=== PATIENT | female | born 1965 | race Asian ===

== ENCOUNTER → 2016-09-16 | Outpatient (CLI) | payer OTHER, BC ==
[~2016-09-16] MED LIST: FLAX100029 PO
== END | disposition home or self-care (01) ==
LOC: CFH 14:33
PROVIDERS: ATTEND Surgery
DX: D24.1 Benign neoplasm of right breast (principal); N63 Unspecified lump in breast
CPT/HCPCS: 76641; G0206

== ENCOUNTER → 2017-04-16 | Outpatient (CLI) | payer OTHER, BC | END | disposition home or self-care (01) | LOC: CFH 13:42 | PROVIDERS: ATTEND Surgery | DX: N63.10 Unspecified lump in the right breast, unspecified quadrant (principal); D48.61 Neoplasm of uncertain behavior of right breast; D24.1 Benign neoplasm of right breast | CPT/HCPCS: 77066 ==

== ENCOUNTER → 2017-05-28 | Outpatient (CLI) | payer OTHER, BC ==
[~2017-05-28] MED LIST changes: +NONE PER PT
== END ==
LOC: STAR 08:19
PROVIDERS: ATTEND Surgery
DX: Z02.9 Encounter for administrative examinations, unspecified (principal)

== ENCOUNTER 2017-06-07 09:54 | Day surgery (SDC) | payer OTHER, BC ==
[~2017-06-07] VITALS: Ht 160 cm; Wt 68.0 kg
[~2017-06-07 09:54] MED LIST changes: +BUPIVACAINE/PF 0.25% ONE
[2017-06-07] MEDS ORDERED: FENTANYL PF 100 MCG/2ML ONE (11:29)
[2017-06-07] MEDS ORDERED: MIDAZOLAM 1 MG/ML, 2ML ONE (11:29)
[2017-06-07 11:35] VITALS: BP 170/104
[2017-06-07] MEDS ORDERED: LACTATED RINGERS 1,000 ML IV SCH (11:35)
[2017-06-07 11:46] LABS: HCG UR SG 1.015 (1.003-1.030)
[2017-06-07] MEDS ORDERED: ONDANSETRON 2MG/ML, 2ML ONE (12:14)
[2017-06-07] MEDS ORDERED: CEFAZOLIN 1,000 MG ONE (12:14)
[2017-06-07] MEDS ORDERED: PROPOFOL 10 MG/ML, 20ML ONE (12:14)
[2017-06-07] MEDS ORDERED: DEXAMETHASONE 4 MG/ML, 1ML ONE (12:14)
[2017-06-07] MEDS ORDERED: LABETALOL 5MG/ML, 20ML IV PRN (12:30)
[2017-06-07] MEDS ORDERED: HYDROcodone/APAP 7.5-325MG/15ML UDC PO PRN (12:30)
[2017-06-07] MEDS ORDERED: ACETAMINOPHEN 325 MG TABLET PO PRN (12:30)
[2017-06-07] MEDS ORDERED: morphine SULFATE 10 MG/ML, 1ML IV PRN (12:30)
[2017-06-07] MEDS ORDERED: FENTANYL PF 100 MCG/2ML IV PRN (12:30)
[2017-06-07] MEDS ORDERED: OXYcodone 5 MG/5 ML ORAL.SOL UDC PO PRN (12:30)
[2017-06-07] MEDS ORDERED: ONDANSETRON 2MG/ML, 2ML IVPush PRN (12:30)
[2017-06-07] MEDS ORDERED: PROMETHAZINE 25 MG/ML, 1ML IV PRN (12:30)
[2017-06-07] MEDS ORDERED: hydrALAzine 20 MG/ML, 1ML IV PRN (12:30)
[2017-06-07] MEDS ORDERED: OXYcodone 5 MG/5 ML ORAL.SOL UDC ONE (12:50)
[2017-06-07] MEDS ORDERED: ACETAMINOPHEN 325 MG TABLET ONE (12:50)
[2017-06-07] MEDS ORDERED: ACETAMINOPHEN 650 MG/20.3 ML UDC ONE (12:51)
[2017-06-07] MEDS ORDERED: hydrALAzine 20 MG/ML, 1ML ONE (13:15)
== END 2017-06-07 15:35 | disposition home or self-care (01) ==
LOC: OUT 09:54
PROVIDERS: ATTEND Surgery
DX: N63.10 Unspecified lump in the right breast, unspecified quadrant (principal)
CPT/HCPCS: 19120; 81025; 88307; J0360; J0690; J1100; J2250; J2405; J2704; J3010; J3490; J7120

== ENCOUNTER 2017-12-13 10:26 | Emergency (ER) | payer OTHER, BC ==
[~2017-12-13] VITALS: Ht 160 cm; Wt 70.0 kg
[~2017-12-13 10:26] MED LIST changes: -BUPIVACAINE/PF 0.25% ONE
[2017-12-13 10:39] VITALS: BP 184/80
[2017-12-13] MEDS ORDERED: LOSA25TA6 PO (10:48)
[2017-12-13 11:54] LABS: MICROSCOPIC AUTO
[2017-12-13 11:57] LABS: CULTURE INDICATED? NO
[2017-12-13 12:16] LABS: BASOPHILS # (AUTO) 0.03 x10^3/uL (0-0.1); BASOPHILS % (AUTO) 0 % (0-1); EOSINOPHILS # (AUTO) 0.07 x10^3/uL (0-0.4); EOSINOPHILS % (AUTO) 1 % (1-7); LYMPHOCYTES # (AUTO) 1.58 x10^3/uL (1-3.4); LYMPHOCYTES % (AUTO) 21 % (22-44); MD NO; MEAN CORPUSCULAR HEMOGLOBIN 30.6 pg (27.0-34.8); MEAN CORPUSCULAR HGB CONC 33.7 g/dL (32.4-35.8); MEAN PLATELET VOLUME 8.6 fL (7.4-10.4); MONOCYTES # (AUTO) 0.57 x10^3/uL (0.2-0.8); MONOCYTES % (AUTO) 7 % (2-9); NEUTROPHILS # (AUTO) 5.47 x10^3/uL (1.8-6.8); NEUTROPHILS % (AUTO) 71 % (42-75); PLATELET COUNT 292 x10^3/uL (130-400); RED BLOOD COUNT 2.74 x10^6/uL (3.82-5.3); RED CELL DISTRIBUTION WIDTH 15.3 % (9.6-15.2)
[2017-12-13 12:24] LABS: ALBUMIN 3.4 g/dL (3.4-5.0); ANION GAP 6 mmol/L (5-15); CHLORIDE 110 mmol/L (98-107); CREATININE 0.65 mg/dL (0.55-1.02)
== END 2017-12-13 14:28 | disposition home or self-care (01) ==
LOC: ED 12:08
DX: N93.8 Other specified abnormal uterine and vaginal bleeding (principal); N92.4 Excessive bleeding in the premenopausal period; I10 Essential (primary) hypertension
CPT/HCPCS: 36415; 76830; 80048; 81001; 82040; 84703; 85025; 99285

== ENCOUNTER 2018-02-04 12:41 | Day surgery (SDC) | payer OTHER, BC ==
[2018-02-02 10:04] LABS: BASOPHILS # (AUTO) 0.03 x10^3/uL (0-0.1); BASOPHILS % (AUTO) 1 % (0-1); EOSINOPHILS % (AUTO) 2 % (1-7); LYMPHOCYTES # (AUTO) 1.58 x10^3/uL (1-3.4); LYMPHOCYTES % (AUTO) 31 % (22-44); MD NO; MEAN CORPUSCULAR HEMOGLOBIN 30.8 pg (27.0-34.8); MEAN CORPUSCULAR HGB CONC 32.8 g/dL (32.4-35.8); MEAN PLATELET VOLUME 9.1 fL (7.4-10.4); MONOCYTES % (AUTO) 10 % (2-9); NEUTROPHILS # (AUTO) 2.88 x10^3/uL (1.8-6.8); NEUTROPHILS % (AUTO) 57 % (42-75); PLATELET COUNT 286 x10^3/uL (130-400); RED CELL DISTRIBUTION WIDTH 15.2 % (9.6-15.2)
[2018-02-02 10:12] LABS: ALANINE AMINOTRANSFERASE 21 U/L (12-78); ALBUMIN 3.8 g/dL (3.4-5.0); ANION GAP 4 mmol/L (5-15); CALCIUM 8.8 mg/dL (8.5-10.1); CHLORIDE 111 mmol/L (98-107); CREATININE 0.88 mg/dL (0.55-1.02)
[2018-02-02 10:14] LABS: ALKALINE PHOSPHATASE 57 U/L (45-117); BILIRUBIN,TOTAL 0.2 mg/dL (0.2-1.0); TOTAL PROTEIN 8.1 g/dL (6.4-8.2)
[~2018-02-04] VITALS: Ht 160 cm; Wt 68.4 kg
[~2018-02-04 12:41] MED LIST changes: +IRON18TA PO; +LOSA100T7 PO; +LOSA25TA6 PO; +MEGE40TA PO
[2018-02-04] MEDS ORDERED: ACETAMINOPHEN 500 MG TABLET PO ONE (13:00)
[2018-02-04] MEDS ORDERED: GABAPENTIN 300 MG CAPSULE PO ONE (13:00)
[2018-02-04] MEDS ORDERED: FENTANYL PF 250 MCG/5ML ONE (13:11)
[2018-02-04] MEDS ORDERED: MIDAZOLAM 1 MG/ML, 2ML ONE (13:11)
[2018-02-04] MEDS ORDERED: NEOSTIGMINE 1 MG/ML, 10ML ONE (13:12)
[2018-02-04] MEDS ORDERED: DEXAMETHASONE 4 MG/ML, 1ML ONE (13:12)
[2018-02-04] MEDS ORDERED: PROPOFOL 10 MG/ML, 20ML ONE (13:12)
[2018-02-04] MEDS ORDERED: ROCURONIUM 10MG/ML,5ML ONE (13:12)
[2018-02-04] MEDS ORDERED: ONDANSETRON 2MG/ML, 2ML ONE (13:12)
[2018-02-04] MEDS ORDERED: GLYCOPYRROLATE 0.2MG/1ML, 5ML ONE (13:12)
[2018-02-04] MEDS ORDERED: CEFAZOLIN 1,000 MG ONE (13:12)
[2018-02-04 13:56] LABS: HCG UR SG 1.026 (1.003-1.030)
[2018-02-04] MEDS: LACTATED RINGERS 1,000 ML IV SCH ×2 (14:02→18:22)
[2018-02-04] MEDS ORDERED: INDIGO CARMINE 0.8%, 5ML ONE (14:12)
[2018-02-04] MEDS ORDERED: BUPIVACAINE/PF-EPI 0.5% 1:200K ONE (14:12)
[2018-02-04] MEDS ORDERED: HYDROmorphone 1 MG/ML, 1ML IV PRN (14:30)
[2018-02-04] MEDS ORDERED: PROMETHAZINE 25 MG SUPP PR PRN (14:30)
[2018-02-04] MEDS ORDERED: ONDANSETRON ODT 8 MG PO PRN (14:30)
[2018-02-04] MEDS ORDERED: ONDANSETRON 2MG/ML, 2ML IV PRN (14:30)
[2018-02-04] MEDS ORDERED: FENTANYL PF 100 MCG/2ML IV PRN (14:30)
[2018-02-04] MEDS ORDERED: PROMETHAZINE 25 MG/ML, 1ML IV PRN (14:30)
[2018-02-04] MEDS ORDERED: PROMETHAZINE 12.5 MG SUPP PR PRN (14:30)
[2018-02-04] MEDS ORDERED: hydrALAzine 20 MG/ML, 1ML IV PRN ×2 (14:30→18:00)
[2018-02-04] MEDS ORDERED: OXYcodone 5 MG/5 ML ORAL.SOL UDC PO PRN (14:30)
[2018-02-04] MEDS ORDERED: MEPERIDINE/PF 25MG/0.5ML IVPush PRN (14:30)
[2018-02-04] MEDS ORDERED: MORPHINE SULFATE 4 MG/ML, 1ML IVPush PRN ×2 (14:30→19:00)
[2018-02-04] MEDS ORDERED: PROMETHAZINE 25 MG/ML, 1ML IM PRN ×2 (14:30)
[2018-02-04] MEDS ORDERED: FENTANYL PF 100 MCG/2ML ONE ×2 (15:35→15:45)
[2018-02-04] MEDS ORDERED: KETOROLAC 30 MG/1 ML ONE (16:10)
[2018-02-04] MEDS ORDERED: LABETALOL 20 MG/4 ML ONE (16:30)
[2018-02-04] MEDS ORDERED: OXYcodone 5 MG/5 ML ORAL.SOL UDC ONE (16:30)
[2018-02-04] MEDS ORDERED: hydrALAzine 20 MG/ML, 1ML ONE (16:30)
[2018-02-04] MEDS: LABETALOL 5MG/ML, 20ML IV PRN ×3 (16:40→16:50)
[2018-02-04] MEDS ORDERED: LACTATED RINGERS 1,000 ML IV SCH (16:43)
[2018-02-04] MEDS ORDERED: PROMETHAZINE 25 MG SUPP PR ONE (17:00)
[2018-02-04] MEDS ORDERED: IBUPROFEN 600 MG TABLET PO PRN (17:00)
[2018-02-04] MEDS ORDERED: HYDROcodone/APAP 5/325 TABLET PO PRN (17:00)
[2018-02-04] MEDS ORDERED: ONDANSETRON 2MG/ML, 2ML IVPush PRN (17:00)
[2018-02-04 18:11] VITALS: BP 143/76
[2018-02-04] MEDS ORDERED: MORPHINE SULFATE 4 MG/ML, 1ML ONE (18:40)
[2018-02-04 18:49] VITALS: BP 140/77
[2018-02-04] MEDS ORDERED: PROM25SU34 RC (20:51)
[2018-02-04] MEDS ORDERED: HYDR-3240 PO (20:51)
[2018-02-04] MEDS ORDERED: ONDANSETRON ODT 4 MG PO ONE (23:00)
[2018-02-04] MEDS ORDERED: ONDANSETRON ODT 4 MG ONE (23:00)
== END 2018-02-04 23:11 | disposition home or self-care (01) ==
LOC: OUT 12:41 → 4NOR 17:56 → OUT 23:11
PROVIDERS: ATTEND Obstetrics & Gynecology Female Pelvic Medicine and Reconstructive Surgery
DX: D25.0 Submucous leiomyoma of uterus (principal); N85.2 Hypertrophy of uterus; N83.8 Other noninflammatory disorders of ovary, fallopian tube and broad ligament; N93.8 Other specified abnormal uterine and vaginal bleeding; D64.9 Anemia, unspecified; Z98.890 Other specified postprocedural states
CPT/HCPCS: 36415; 58573; 71046; 80053; 81025; 85025; 88307; 93005; J0360; J0690; J1100; J1885; J2250; J2405; J2704; J2710; J3010; J3490; J7120; Q0162; G0378

== ENCOUNTER 2018-05-26 12:50 | Outpatient (CLI) | payer OTHER ==
[~2018-05-26 12:50] MED LIST changes: +HYDR-3240 PO; +LOSA100T14 PO; -LOSA100T7 PO; +LOSA25TA25 PO; -LOSA25TA6 PO; +PROM25SU34 RC
== END 2018-05-26 23:59 | disposition home or self-care (01) ==
LOC: CFH 12:50
PROVIDERS: ATTEND Obstetrics & Gynecology Female Pelvic Medicine and Reconstructive Surgery
DX: D48.61 Neoplasm of uncertain behavior of right breast (principal)
CPT/HCPCS: 76641; 77066; G0279

== ENCOUNTER 2020-07-04 08:00 | Outpatient (CLI) | payer OTHER ==
[~2020-07-04 08:00] MED LIST changes: +HYDR-2214 PO; -HYDR-3240 PO; -MEGE40TA PO; +MEGE40TA3 PO
== END 2020-07-04 23:59 | disposition home or self-care (01) ==
LOC: CFH 08:00
PROVIDERS: ATTEND Obstetrics & Gynecology Female Pelvic Medicine and Reconstructive Surgery
DX: Z12.31 Encounter for screening mammogram for malignant neoplasm of breast (principal)
CPT/HCPCS: 77063; 77067